=== PATIENT | male | born 1965 | race Caucasian/White ===

== ENCOUNTER 2018-01-11 01:04 | Inpatient (IN) | payer MEDICAID, OTHER ==
[~2018-01-11] VITALS: Ht 172.7 cm; Wt 96.6 kg
[2018-01-11] VITALS (7 sets, daily range): BP systolic 123–137; BP diastolic 67–74
--- NOTE | 2018-01-11 01:11 | NUR ---
PT AMBULATORY TO ER BED 11. BIBFAMILY FROM HOME C/O CP X 3 DAYS;BURNING PAIN 12/16. PT PLACED IN GOWN AND ON MOLDING SUPERVISOR. VSS/RESP EVEN UNLABORED/NAD NOTED/SKIN WARM AND DRY/AFEBRILE/DENIES N-V-D/AOX4. AWAITNG MD NGUYEN.
--- NOTE | 2018-01-11 01:25 | NUR ---
EMT AT BEDSIDE FOR EKG.
[2018-01-11] MEDS ORDERED: NITROGLYCERIN 0.4 MG/TAB BOTTLE ONE ×2 (01:30→12:33)
[2018-01-11] MEDS ORDERED: NITROGLYCERIN 0.4 MG/TAB BOTTLE SL ONE (01:30)
[2018-01-11 01:37] LABS: BASOPHILS % (AUTO) 0.4 % (0.0-2.0); HEMATOCRIT 42 % (39-51); HEMOGLOBIN 14.3 g/dL (13.5-17.5); LYMPHOCYTES # (AUTO) 1.6 /CMM (0.8-4.8); LYMPHOCYTES % (AUTO) 25.6 % (20.0-44.0); MEAN CORPUSCULAR HEMOGLOBIN 31 PG (26.0-33.0); MEAN CORPUSCULAR HGB CONC 34 g/dl (31.0-36.0); MEAN CORPUSCULAR VOLUME 90 fL (80-96); MONOCYTES # (AUTO) 0.8 /CMM (0.1-1.30); MONOCYTES % (AUTO) 13.1 % (2.0-12.0); NEUTROPHILS # (AUTO) 3.9 /CMM (1.8-8.9); NEUTROPHILS % (AUTO) 60.9 % (43.0-81.0); PLATELET COUNT (AUTO) 232 /CMM (150-450); RDW COEFFICIENT OF VARIATION 12.7 (11.5-15.0); RED BLOOD CELL COUNT(AUTO) 4.66 MIL/uL (4.5-6.0); WHITE BLOOD COUNT (AUTO) 6.4 K/uL (4.3-11.0)
--- NOTE | 2018-01-11 01:37 | NUR ---
LAB AT THE BEDSIDE FOR DRAW.
--- NOTE | 2018-01-11 01:41 | NUR ---
PT STATES HE IS CP FREE AFTER NITRO SL X 1.
--- NOTE | 2018-01-11 01:44 | NUR ---
XRAY AT BEDSIDE.
[2018-01-11 01:48] LABS: CALCIUM, SERUM 8.8 mg/dL (8.5-10.1); CARBON DIOXIDE 28 mmol/L (21-32); CHLORIDE 101 mmol/L (98-107); CREATININE 1.5 mg/dL (0.6-1.3); GLUCOSE 230 mg/dL (74-106); POTASSIUM 4.4 mmol/L (3.5-5.1); SODIUM SERUM 140 mmol/L (136-145); UREA NITROGEN, BLOOD 17 mg/dL (7-18)
[2018-01-11 01:56] LABS: TROPONIN I < 0.017 ng/mL (0.00-0.056)
[2018-01-11 02:01] LABS: B-TYPE NATRIURETIC PEPTIDE 18 PG/ML (0-125)
--- NOTE | 2018-01-11 02:01 | NUR ---
Note brett in ED - 01/11/18 at 0239 by MELISSA 20G IV TO L AC X 1 ATTEMPT USING ASEPTIC TECH. IV FLUSHES EASILY WITH NS, NO S/S INFILTRATION NOTED AT THIS TIME.
--- NOTE | 2018-01-11 02:01 | NUR ---
20G IV TO R HAND X 1 ATTEMPT USING ASEPTIC TECH. IV FLUSHES EASILY WITH NS, NO S/S INFILTRATION NOTED AT THIS TIME.
--- NOTE | 2018-01-11 02:34 | NUR ---
[facility] CONTACTED FOR MADELAINE MELENDEZ.
[2018-01-11] MEDS ORDERED: LISI2.5T2 PO (02:36)
[2018-01-11] MEDS ORDERED: METO25TA20 GT (02:36)
[2018-01-11] MEDS ORDERED: INSU100V7 SQ (02:36)
[2018-01-11] MEDS ORDERED: CLOP75TA15 PO (02:36)
[2018-01-11] MEDS ORDERED: INSU100I4 SQ (02:36)
[2018-01-11] MEDS ORDERED: ASPI-605 PO (02:36)
--- NOTE | 2018-01-11 02:45 | NUR ---
REPORT GIVEN TO WILLIE CARDOZO FOR MARGARITO.
--- NOTE | 2018-01-11 03:17 | NUR ---
PT TRANSPORTED TO TELE 111.1 VIA STRETCHER ON MACHINE STUFFER AUTOMATIC WITH RN PER ACLS PROTOCOL. VSS.
--- NOTE | 2018-01-11 03:33 | NUR ---
EXPERIMENTAL PSYCHOLOGIST NOTES RECEIVED PT FROM ER NURSE DWIGHT. PT ON ROOM AIR, SATURATING WELL, NO RESPIRATORY DISTRESS NOTED. VITAL SIGNS STABLE. ON TELE MONITOR SR 78. SKIN ASSESSMENT DONE. AWAITING ADMITTING ORDERS. WILL CONTINUE TO MONITOR PT CLOSELY.
--- NOTE | 2018-01-11 04:19 | NUR ---
NEWSPAPER VENDOR NOTES STILL AWAITING ADMITTING ORDERS.
[2018-01-11] MEDS ORDERED: MAGNESIUM HYDROXIDE 30 ML UDC PO PRN (05:00)
[2018-01-11] MEDS ORDERED: METOPROLOL TARTRATE 25 MG TABLET PO SCH (05:00)
[2018-01-11] MEDS ORDERED: ONDANSETRON HCL/PF 4 MG/2 ML VIAL IVP PRN (05:00)
[2018-01-11] MEDS ORDERED: HYDROCODONE/APAP 5/325MG 1 EACH TABLET PO PRN (05:00)
[2018-01-11] MEDS ORDERED: ZOLPIDEM TARTRATE 5 MG TABLET PO PRN (05:00)
[2018-01-11] MEDS ORDERED: DEXTROSE 50%-WATER 50 ML DISP.SYRIN IV PRN ×2 (05:00→18:30)
[2018-01-11] MEDS ORDERED: MORPHINE SULFATE INJ 2 MG/ML DISP.SYRIN IV PRN (05:00)
[2018-01-11] MEDS ORDERED: ACETAMINOPHEN 325 MG TABLET PO PRN (05:00)
[2018-01-11] MEDS ORDERED: NITROGLYCERIN 0.4 MG/TAB BOTTLE SL PRN (05:00)
[2018-01-11] MEDS: IV NS 0.9% 1,000 ML IV PRN (05:06)
--- NOTE | 2018-01-11 07:14 | NUR ---
BAKESHOP CLEANER NOTES NO ACUTE CHANGES NOTED DURING THE SHIFT. PROVIDED COMFORT AND SAFETY. BED ALARM ON. HEAD OF BED ELEVATED. SIDE RAILS UP. CALL LIGHT WITHIN REACH. ENDORSED TO THE AM NURSE FOR CONTINUITY FOR CARE.
[2018-01-11] MEDS: BLOOD SUGAR DIAGNOSTIC 1 EACH STRIP IN SCH ×3 (07:49→17:31)
[2018-01-11] MEDS: INSULIN REGULAR, HUMAN 100 UNIT/ML 3 ML VIAL SQ PRN ×3 (07:52→18:26)
[2018-01-11 07:53] LABS: BASOPHILS % (AUTO) 0.3 % (0.0-2.0); EOSINOPHILS % (AUTO) 0.7 % (0.0-6.0); HEMATOCRIT 39 % (39-51); HEMOGLOBIN 13.6 g/dL (13.5-17.5); LYMPHOCYTES # (AUTO) 1.6 /CMM (0.8-4.8); MEAN CORPUSCULAR HEMOGLOBIN 31 PG (26.0-33.0); MEAN CORPUSCULAR HGB CONC 35 g/dl (31.0-36.0); MEAN CORPUSCULAR VOLUME 89 fL (80-96); MONOCYTES # (AUTO) 0.8 /CMM (0.1-1.30); MONOCYTES % (AUTO) 12.4 % (2.0-12.0); NEUTROPHILS # (AUTO) 4.1 /CMM (1.8-8.9); NEUTROPHILS % (AUTO) 62.6 % (43.0-81.0); PLATELET COUNT (AUTO) 217 /CMM (150-450); RDW COEFFICIENT OF VARIATION 12.9 (11.5-15.0); RED BLOOD CELL COUNT(AUTO) 4.39 MIL/uL (4.5-6.0); WHITE BLOOD COUNT (AUTO) 6.6 K/uL (4.3-11.0)
[2018-01-11 08:08] LABS: CALCIUM, SERUM 8.6 mg/dL (8.5-10.1); CREATININE 1.1 mg/dL (0.6-1.3); MAGNESIUM 1.7 mg/dL (1.8-2.4); PHOSPHORUS 3.2 mg/dL (2.5-4.9); POTASSIUM 4.3 mmol/L (3.5-5.1)
[2018-01-11] MEDS ORDERED: ASPIRIN 81 MG TAB.CHEW PO SCH (09:00)
[2018-01-11] MEDS: ASPIRIN EC 81 MG TABLET.DR PO SCH (09:20)
[2018-01-11] MEDS: CLOPIDOGREL BISULFATE 75 MG TABLET PO SCH (09:20)
[2018-01-11] MEDS: ATORVASTATIN 40 MG TABLET PO SCH (09:50)
[2018-01-11] MEDS: Magnesium 1GM/D5W 100ML PREMIX 100 ML IV SCH ×2 (09:50→11:11)
[2018-01-11 10:17] LABS: THYROID STIMULATING HORMONE 1.882 uIU/mL (0.358-3.74)
[2018-01-11] MEDS: METOPROLOL TARTRATE 25 MG TABLET PO SCH ×2 (11:48→17:31)
[2018-01-11] MEDS ORDERED: IOHEXOL-350 100 ML VIAL IV ONE (12:21)
[2018-01-11] MEDS ORDERED: CT SWABBABLE VALVE TRANS SET 1 EA INFUS.SET MC ONE (12:21)
[2018-01-11] MEDS ORDERED: IV NS 0.9% 250 ML IV ONE (12:21)
[2018-01-11] MEDS ORDERED: METOPROLOL TARTRATE INJ 5 MG/5 ML AMPUL ONE (12:32)
[2018-01-11] MEDS ORDERED: INSULIN REGULAR, HUMAN 100 UNIT/ML 10 ML VIAL SQ SCH (18:00)
[2018-01-11] MEDS: BLOOD SUGAR DIAGNOSTIC 1 EACH STRIP VI SCH ×2 (18:27→21:23)
[2018-01-11] MEDS ORDERED: *INSULIN REGULAR(HUMULIN R)HUM 100 UNIT/ML VIAL SQ PRN (18:30)
--- NOTE | 2018-01-11 18:30 | NUR ---
NO C/O CHEST PAIN THROUGHOUT SHIFT. BLOOD SUGARS MONITORED, SPOKE WITH DR HOYOS RE - SLIDING SCALE ORDER AND STATED TO MAKE IT TO MODERATE SCALE. PT EATS WELL, VOIDS WELL AND AMBULATES STEADILY. FAMILY AT BEDSIDE. BED LOW AND LOCKED. CALL LIGHT WITHN REACHED. WILL CONT TO MONITOR.
[2018-01-12] VITALS: BP 109/56
[2018-01-12] MEDS: IV NS 0.9% 1,000 ML IV PRN (00:52)
[2018-01-12 04:00] VITALS: BP 149/65
[2018-01-12] MEDS: METOPROLOL TARTRATE 25 MG TABLET PO SCH ×3 (05:20→12:30)
[2018-01-12] MEDS: BLOOD SUGAR DIAGNOSTIC 1 EACH STRIP VI SCH ×2 (07:39→12:30)
[2018-01-12 07:56] LABS: BASOPHILS % (AUTO) 0.2 % (0.0-2.0); EOSINOPHILS % (AUTO) 1.1 % (0.0-6.0); HEMATOCRIT 41 % (39-51); HEMOGLOBIN 13.9 g/dL (13.5-17.5); LYMPHOCYTES # (AUTO) 1.4 /CMM (0.8-4.8); LYMPHOCYTES % (AUTO) 23.2 % (20.0-44.0); MEAN CORPUSCULAR HEMOGLOBIN 31 PG (26.0-33.0); MEAN CORPUSCULAR HGB CONC 34 g/dl (31.0-36.0); MEAN CORPUSCULAR VOLUME 90 fL (80-96); MONOCYTES # (AUTO) 0.6 /CMM (0.1-1.30); MONOCYTES % (AUTO) 10.5 % (2.0-12.0); PLATELET COUNT (AUTO) 202 /CMM (150-450); RDW COEFFICIENT OF VARIATION 12.4 (11.5-15.0); RED BLOOD CELL COUNT(AUTO) 4.49 MIL/uL (4.5-6.0); WHITE BLOOD COUNT (AUTO) 6.1 K/uL (4.3-11.0)
[2018-01-12] MEDS: INSULIN REGULAR, HUMAN 100 UNIT/ML 3 ML VIAL SQ PRN ×2 (07:59→12:29)
[2018-01-12 08:00] VITALS: BP 127/70
[2018-01-12 08:15] LABS: ALANINE AMINOTRANSFERASE 36 U/L (12-78); ALBUMIN 3.5 g/dL (3.4-5.0); ALKALINE PHOSPHATASE 64 U/L (46-116); ASPARTATE AMINOTRANSFERASE 17 U/L (15-37); BILIRUBIN,TOTAL 0.6 mg/dL (0.2-1.0); CALCIUM, SERUM 8.2 mg/dL (8.5-10.1); CARBON DIOXIDE 28 mmol/L (21-32); CHLORIDE 103 mmol/L (98-107); GLUCOSE 190 mg/dL (74-106); PHOSPHORUS 2.9 mg/dL (2.5-4.9); POTASSIUM 4.5 mmol/L (3.5-5.1); SODIUM SERUM 139 mmol/L (136-145); TOTAL PROTEIN, SERUM 6.7 g/dL (6.4-8.2); UREA NITROGEN, BLOOD 13 mg/dL (7-18)
[2018-01-12 08:16] LABS: TROPONIN I < 0.017 ng/mL (0.00-0.056)
[2018-01-12] MEDS: ATORVASTATIN 40 MG TABLET PO SCH (09:15)
[2018-01-12] MEDS: CLOPIDOGREL BISULFATE 75 MG TABLET PO SCH (09:15)
[2018-01-12] MEDS: ASPIRIN EC 81 MG TABLET.DR PO SCH (09:15)
[2018-01-12] MEDS ORDERED: METO25TA20 PO (11:56)
[2018-01-12 12:00] VITALS: BP 123/77
[2018-01-12 12:30] VITALS: BP 123/77
--- NOTE | 2018-01-12 13:34 | NUR ---
DISCHARGE INSTRUCTIONS GIVEN REGARDING MEDICATIONS, ACTIVITIES, DIET AND FOLLOW UP APPOINTMENTS. HL REMOVED. PT HAS NO C/O CHEST PAIN. PT EATING WELL. VOIDING WELL. VITAL SIGNS MONITORED AND STABLE. CAME TO TOW MOTOR MECHANIC PT. ENCOURAGED FOR QUESTIONS REGARDING DISCHARGE INSTRUCTIONS, NONE RAISED.
== END 2018-01-12 13:45 | disposition home or self-care (01) | DRG 243 ==
LOC: ER 01:06 → TELE1 02:47
PROVIDERS: ADMIT Nurse Practitioner Acute Care; ATTEND Family Medicine
DX: K21.9 Gastro-esophageal reflux disease without esophagitis (principal); N17.0 Acute kidney failure with tubular necrosis; I25.10 Atherosclerotic heart disease of native coronary artery without angina pectoris; E11.9 Type 2 diabetes mellitus without complications; E83.42 Hypomagnesemia; I10 Essential (primary) hypertension; Z79.82 Long term (current) use of aspirin; Z79.899 Other long term (current) drug therapy; Z79.4 Long term (current) use of insulin; Z95.5 Presence of coronary angioplasty implant and graft; Z83.3 Family history of diabetes mellitus; E66.9 Obesity, unspecified; Z68.32 Body mass index [BMI] 32.0-32.9, adult
CPT/HCPCS: 36415; 71045-TC; 75574; 80048-TC; 80053-TC; 80061-TC; 82962-TC; 83735-TC; 83880; 84100-TC; 84439-TC; 84443-TC; 84484-TC; 85025-TC; 85730-TC; 87081-TC; 93307-TC; A4606; J1815; J3475; J3490; J7030; J7050; Q9967; Z7610

== ENCOUNTER 2018-09-21 23:14 | Inpatient (IN) | payer BC ==
[~2018-09-21] VITALS: Ht 167.6 cm; Wt 97.1 kg
[~2018-09-21 23:14] MED LIST: ASPI-605 PO; CLOP75TA15 PO; INSU100I4 SQ; INSU100V7 SQ; LISI2.5T2 PO; METO25TA20 PO
--- NOTE | 2018-09-21 23:16 | NUR ---
PT BIBSELF COMPLAINING 5/10 CHEST PAIN RADIATING TO HEAD. PT STATES "CHEST PAIN STARTED 9PM YESTERDAY AND HAS NOT GONE AWAY." PT AXO4. RESPIRATIONS EVEN AND UNLABORED. PT PUT ON THE TRUCK DRIVER TEAMSTER AND PULSE OX. PENDING EVAL FROM ER .
--- NOTE | 2018-09-21 23:17 | NUR ---
EKG AT BEDSIDE.
--- NOTE | 2018-09-21 23:25 | NUR ---
MOMO ESPINOZA AT BEDSIDE.
[2018-09-21] MEDS ORDERED: IV NS 0.9% 1,000 ML BAG IV ONE (23:30)
[2018-09-21 23:40] LABS: BASOPHILS % (AUTO) 0.7 % (0.0-2.0); EOSINOPHILS % (AUTO) 1.4 % (0.0-6.0); HEMATOCRIT 43 % (39-51); HEMOGLOBIN 15.3 g/dL (13.5-17.5); LYMPHOCYTES # (AUTO) 1.9 /CMM (0.8-4.8); LYMPHOCYTES % (AUTO) 25.3 % (20.0-44.0); MEAN CORPUSCULAR HGB CONC 35 g/dl (31.0-36.0); MEAN CORPUSCULAR VOLUME 88 fL (80-96); MONOCYTES # (AUTO) 0.8 /CMM (0.1-1.30); MONOCYTES % (AUTO) 11.3 % (2.0-12.0); NEUTROPHILS # (AUTO) 4.5 /CMM (1.8-8.9); NEUTROPHILS % (AUTO) 61.3 % (43.0-81.0); PLATELET COUNT (AUTO) 237 /CMM (150-450); RED BLOOD CELL COUNT(AUTO) 4.89 MIL/uL (4.5-6.0); WHITE BLOOD COUNT (AUTO) 7.4 K/uL (4.3-11.0)
[2018-09-21] MEDS ORDERED: ATORVASTATIN 40 MG TABLET ONE (23:40)
[2018-09-21] MEDS ORDERED: ASPIRIN 81 MG TAB.CHEW ONE (23:40)
[2018-09-21] MEDS: ATORVASTATIN 40 MG TABLET PO SCH (23:44)
[2018-09-21 23:47] LABS: CALCIUM, SERUM 8.6 mg/dL (8.5-10.1); CARBON DIOXIDE 29 mmol/L (21-32); CHLORIDE 103 mmol/L (98-107); CREATININE 1.3 mg/dL (0.6-1.3); GLUCOSE 169 mg/dL (74-106); SODIUM SERUM 140 mmol/L (136-145); UREA NITROGEN, BLOOD 23 mg/dL (7-18)
[2018-09-22] MEDS ORDERED: ASPIRIN 81 MG TAB.CHEW PO ONE
[2018-09-22 00:01] LABS: ALANINE AMINOTRANSFERASE 37 U/L (12-78); ALBUMIN 3.8 g/dL (3.4-5.0); ALKALINE PHOSPHATASE 77 U/L (46-116); ASPARTATE AMINOTRANSFERASE 17 U/L (15-37); B-TYPE NATRIURETIC PEPTIDE 7 PG/ML (0-125); BILIRUBIN,DIRECT 0.1 mg/dL (0.0-0.2); BILIRUBIN,TOTAL 0.4 mg/dL (0.2-1.0); TOTAL PROTEIN, SERUM 7.2 g/dL (6.4-8.2)
[2018-09-22 00:18] LABS: CHOLESTEROL 301 mg/dL (<200); HDL CHOLESTEROL 51 mg/dL (40-60); LDL 201 mg/dL (0-99); TRIGLYCERIDES 359 mg/dL (30-150)
--- NOTE | 2018-09-22 00:28 | NUR ---
CALLED [facility] MICROBIOLOGY COORDINATOR SCULLION CHIEF.
--- NOTE | 2018-09-22 00:52 | NUR ---
PT RESTING IN BED, NAD NOTED. WILL CONTINUE TO MONITOR.
--- NOTE | 2018-09-22 01:32 | NUR ---
INSURANCE AUTH REC'D, PT CAN STAY.
--- NOTE | 2018-09-22 01:58 | NUR ---
PT RESTING IN BED, NAD NOTED. WILL CONTINUE TO MONITOR.
--- NOTE | 2018-09-22 02:19 | NUR ---
REPORT GIVEN TO MALLORY TAPIA FOR MARGARITO.
[2018-09-22 02:25] VITALS: BP 132/76
[2018-09-22 02:30] VITALS: BP 132/76
--- NOTE | 2018-09-22 02:30 | NUR ---
FUNDING SPECIALIST NOTES, RECEIVED 53 YEAR OLD MALE FROM ER DEPARTMENT VIA STRETCHER IN COMPANY OF 2 RNS IN STABLE CONDITION, NO SOB/ACUTE DISTRESS NOTED AT THIS TIME, UNDER MEDICAL SERVICES OF DAVID MELENDEZ NP, ADMITTING DX OF CHEST PAIN, PATIENT A/O X4, ABLE TO VERBALIZED NEEDS AND CONCERNS, C/O CHEST PAIN 12/16, WILL F/U WITH [facility] FOR ORDERS, IV ACCESS IN RIGHT AC 20G, PATENT AND INTACT, AFEBRILE, UPON SKIN ASSESSMENT SKIN NOTED INTACT, AMBULATORY, ATTACH TO TELE MONITOR AND SR NOTED WITH HR 70S, CALL LIGHT W/I REACH, BED LOCKED AND IN LOW POSITION, ORIENTED TO ROOM AND CALL LIGHT USE, WILL CONTINUE TO MONITOR CLOSELY. VS 132/76, 72, 98.1, 96%, 12/16, 18.
[2018-09-22] MEDS: MORPHINE SULFATE INJ 2 MG/ML DISP.SYRIN IV PRN ×2 (02:59→14:14)
[2018-09-22] MEDS ORDERED: NITROGLYCERIN 0.4 MG/TAB BOTTLE SL PRN (03:00)
[2018-09-22] MEDS ORDERED: HYDROCODONE/APAP 5/325MG 1 EACH TABLET PO PRN (03:00)
[2018-09-22] MEDS ORDERED: DEXTROSE 50%-WATER 50 ML DISP.SYRIN IV PRN (03:00)
[2018-09-22] MEDS ORDERED: ACETAMINOPHEN 325 MG TABLET PO PRN (03:00)
[2018-09-22] MEDS ORDERED: ZOLPIDEM TARTRATE 5 MG TABLET PO PRN (03:00)
[2018-09-22] MEDS ORDERED: ATORVASTATIN 40 MG TABLET PO SCH (03:00)
[2018-09-22] MEDS ORDERED: MAGNESIUM HYDROXIDE 30 ML UDC PO PRN (03:00)
[2018-09-22] MEDS ORDERED: ONDANSETRON HCL/PF 4 MG/2 ML VIAL IVP PRN (03:00)
[2018-09-22 04:00] VITALS: BP 157/84
--- NOTE | 2018-09-22 06:56 | NUR ---
WOOD PATTERNMAKER NOTES, PATIENT SLEEPING AT THIS TIME, BREATHING EVEN AND UNLABORED NO SOB/ACUTE DISTRESS NOTED AT THIS TIME, NO FACIAL GRIMACING NOTED, NO S/S OF PAIN OR DISCOMFORT NOTED, , IV ACCESS IN RIGHT AC 20G, PATENT AND INTACT, ON TELE MONITOR AND SR NOTED WITH HR 70S, CALL LIGHT W/I REACH, BED LOCKED AND IN LOW POSITION, NO SIGNIFICANT CHANGE IN CONDITION DURING THE REST OF THE SHIFT, WILL ENDORSE CONTINUITY OF CARE TO ONCOMING NURSE.
[2018-09-22 06:57] LABS: BASOPHILS % (AUTO) 0.6 % (0.0-2.0); EOSINOPHILS % (AUTO) 2.1 % (0.0-6.0); HEMATOCRIT 40 % (39-51); LYMPHOCYTES # (AUTO) 1.7 /CMM (0.8-4.8); LYMPHOCYTES % (AUTO) 29.5 % (20.0-44.0); MEAN CORPUSCULAR HGB CONC 35 g/dl (31.0-36.0); MEAN CORPUSCULAR VOLUME 88 fL (80-96); MONOCYTES # (AUTO) 0.7 /CMM (0.1-1.30); MONOCYTES % (AUTO) 11.2 % (2.0-12.0); NEUTROPHILS # (AUTO) 3.3 /CMM (1.8-8.9); NEUTROPHILS % (AUTO) 56.6 % (43.0-81.0); PLATELET COUNT (AUTO) 197 /CMM (150-450); RED BLOOD CELL COUNT(AUTO) 4.57 MIL/uL (4.5-6.0); WHITE BLOOD COUNT (AUTO) 5.9 K/uL (4.3-11.0)
[2018-09-22 07:04] LABS: CALCIUM, SERUM 8.3 mg/dL (8.5-10.1); MAGNESIUM 1.9 mg/dL (1.8-2.4); PHOSPHORUS 3.5 mg/dL (2.5-4.9); POTASSIUM 3.9 mmol/L (3.5-5.1)
[2018-09-22 08:00] VITALS: BP 132/74
--- NOTE | 2018-09-22 08:00 | NUR ---
THERAPEUTIC RECREATION ASSISTANT NOTES, PATIENT SLEEPING AT THIS TIME, BREATHING EVEN AND UNLABORED NO SOB/ACUTE DISTRESS NOTED AT THIS TIME, , NO S/S OF PAIN OR DISCOMFORT NOTED, , IV ACCESS IN RIGHT AC 20G, PATENT AND INTACT, ON TELE MONITOR AND SR NOTED WITH HR 69, CALL LIGHT W/I REACH, BED LOCKED AND IN LOW POSITION, , 2DECHO DONE ORDERED NO SOB NOTED WILL MONITOR CLOSELY ,SEEN BY DR MA
[2018-09-22] MEDS: CLOPIDOGREL BISULFATE 75 MG TABLET PO SCH (08:33)
[2018-09-22] MEDS: LISINOPRIL (5MG) 5 MG TABLET PO SCH (08:34)
[2018-09-22] MEDS: ASPIRIN EC 81 MG TABLET.DR PO SCH (08:34)
[2018-09-22] MEDS: INSULIN REGULAR, HUMAN 100 UNIT/ML 3 ML VIAL SQ PRN ×4 (08:35→21:27)
[2018-09-22] MEDS: BLOOD SUGAR DIAGNOSTIC 1 EACH STRIP IN SCH ×4 (08:41→21:25)
[2018-09-22 08:47] VITALS: BP 132/74
[2018-09-22] MEDS ORDERED: METOPROLOL TARTRATE 25 MG TABLET PO ONE (09:00)
[2018-09-22] MEDS ORDERED: METOPROLOL TARTRATE 25 MG TABLET PO SCH (09:00)
--- NOTE | 2018-09-22 10:16 | NUR ---
MS RN NOTE SIGNED CONSENT FOR CT ANGIOGRAM
[2018-09-22] MEDS ORDERED: IOHEXOL-350 100 ML VIAL IV ONE (13:27)
[2018-09-22] MEDS ORDERED: IV NS 0.9% 250 ML IV ONE (13:28)
[2018-09-22] MEDS ORDERED: CT SWABBABLE VALVE TRANS SET 1 EA INFUS.SET MC ONE (13:28)
[2018-09-22] MEDS ORDERED: METOPROLOL TARTRATE INJ 5 MG/5 ML AMPUL ONE (13:28)
[2018-09-22] MEDS ORDERED: IV NS 0.9% 500 ML IV ONE ×2 (13:34→14:00)
[2018-09-22] MEDS ORDERED: NITROGLYCERIN 4.9 GM SPRAY SL ONE (14:00)
[2018-09-22] MEDS ORDERED: METOPROLOL TARTRATE INJ 5 MG/5 ML AMPUL IVP ONE (14:00)
--- NOTE | 2018-09-22 14:20 | NUR ---
ms rn note back from ct angio gram ,c\o chest pain 8\1o , morphine 2 mg ivp given as ordered, nitro glycerin sl was given prior to cone to unit by ct angio rn , will f\u
--- NOTE | 2018-09-22 14:37 | NUR ---
MS RN NOTE DR MILLER AT BEDSIDE NOTIFIED THAT PATIENT HAD CT ANGIOGRAM JUST NOW AND C\O CHEST PAIN MORPHINE 2 MF IVP GIVEN ORDERED ALSO AWARE THAT EARLIER 2D ECHO DONE, EF 65% TROPONIN 0.017 , STATED WILL MONITOR CLOSELY FOR CT ANGIOGRAM RESULT, NO NEW ORDER GIVEN AR THIS TIME ,
--- NOTE | 2018-09-22 15:13 | NUR ---
ms rn note ekg done as ordered, result given to dr sullivan , awaiting for troponin level ,chest pain is slightly subsided 6\10, will monitor
[2018-09-22 16:00] VITALS: BP 116/66
--- NOTE | 2018-09-22 16:48 | NUR ---
ms rn note dr christina notifyed of cta result no new order given at this time ok to stay patient over night
--- NOTE | 2018-09-22 18:15 | NUR ---
MS RN NOTE DR MA NOTIFIED ABOUT CTA RESULT ,NO NEW ORDER GIVEN AT THIS TIME WITH POSSIBLE TO D\C HOME TOMORROW
--- NOTE | 2018-09-22 18:53 | NUR ---
ms rn note resting comfortably , all needs attended ,not in discomfort at this time ,will cont to monitor closely
--- NOTE | 2018-09-22 19:10 | NUR ---
PACK OPERATOR NOTES, PATIENT IN BED AWAKE A/O X4 WATCHING TV AT THIS TIME, BREATHING EVEN AND UNLABORED NO SOB/ACUTE DISTRESS NOTED AT THIS TIME, NO S/S OF PAIN OR DISCOMFORT NOTED, DENIES PAIN OR DISCOMFORT AT THIS TIME, IV ACCESS IN RIGHT AC 20G, PATENT AND INTACT, CALL LIGHT W/I REACH, BED LOCKED AND IN LOW POSITION, WILL CONTINUE TO MONITOR PATIENT CLOSELY.
[2018-09-22] MEDS: ATORVASTATIN 40 MG TABLET PO SCH (22:00)
[2018-09-23 04:00] VITALS: BP 109/73
[2018-09-23 06:39] LABS: BASOPHILS % (AUTO) 0.2 % (0.0-2.0); EOSINOPHILS % (AUTO) 1.6 % (0.0-6.0); HEMATOCRIT 43 % (39-51); HEMOGLOBIN 15.2 g/dL (13.5-17.5); LYMPHOCYTES # (AUTO) 1.2 /CMM (0.8-4.8); MEAN CORPUSCULAR HGB CONC 35 g/dl (31.0-36.0); MEAN CORPUSCULAR VOLUME 88 fL (80-96); MONOCYTES # (AUTO) 0.7 /CMM (0.1-1.30); MONOCYTES % (AUTO) 10.8 % (2.0-12.0); NEUTROPHILS # (AUTO) 4.5 /CMM (1.8-8.9); NEUTROPHILS % (AUTO) 68.4 % (43.0-81.0); PLATELET COUNT (AUTO) 209 /CMM (150-450); RED BLOOD CELL COUNT(AUTO) 4.94 MIL/uL (4.5-6.0); WHITE BLOOD COUNT (AUTO) 6.6 K/uL (4.3-11.0)
--- NOTE | 2018-09-23 06:55 | NUR ---
BEHAVIOUR SUPPORT TEACHER NOTES, PATIENT IN BED AWAKE A/O X4 WATCHING TV AT THIS TIME, BREATHING EVEN AND UNLABORED NO SOB/ACUTE DISTRESS NOTED AT THIS TIME, NO S/S OF PAIN OR DISCOMFORT NOTED, DENIES CHEST PAIN OR DISCOMFORT AT THIS TIME, IV ACCESS IN RIGHT AC 20G, PATENT AND INTACT, CALL LIGHT W/I REACH, ALL NEEDS PROVIDED, NO CHANGE IN CONDITION THROUGHOUT THE NIGHT, BED LOCKED AND IN LOW POSITION, WILL ENDORSE CONTINUITY OF CARE TO ONCOMING NURSE.
[2018-09-23 07:06] LABS: CALCIUM, SERUM 8.7 mg/dL (8.5-10.1); CREATININE 0.9 mg/dL (0.6-1.3); MAGNESIUM 2.1 mg/dL (1.8-2.4); PHOSPHORUS 3.3 mg/dL (2.5-4.9); POTASSIUM 4.1 mmol/L (3.5-5.1)
[2018-09-23] MEDS ORDERED: PANTOPRAZOLE 40 MG TABLET.DR PO SCH (07:30)
[2018-09-23 08:00] VITALS: BP 121/68
[2018-09-23] MEDS ORDERED: METOPROLOL TARTRATE 25 MG TABLET PO SCH (09:00)
[2018-09-23] MEDS: BLOOD SUGAR DIAGNOSTIC 1 EACH STRIP IN SCH ×2 (09:00→12:26)
[2018-09-23 09:01] VITALS: BP 121/68
[2018-09-23] MEDS: CLOPIDOGREL BISULFATE 75 MG TABLET PO SCH (09:01)
[2018-09-23] MEDS: LISINOPRIL (5MG) 5 MG TABLET PO SCH (09:01)
[2018-09-23] MEDS: ASPIRIN EC 81 MG TABLET.DR PO SCH (09:01)
[2018-09-23] MEDS: INSULIN REGULAR, HUMAN 100 UNIT/ML 3 ML VIAL SQ PRN ×2 (09:09→12:31)
[2018-09-23] MEDS ORDERED: PANT40TA2 PO (13:10)
[2018-09-23] MEDS ORDERED: Nitroglycerin SL (13:10)
[2018-09-23] MEDS ORDERED: METO25TA20 PO (13:10)
[2018-09-23] MEDS ORDERED: ATOR40TA PO (13:10)
--- NOTE | 2018-09-23 14:00 | NUR ---
RN NOTE PT DISCHARGE HOME, IN STABLE CONDITION WITH KRISTEN, VIA OWN TRANSPORTATION, DISCHARGE INSTRUCTIONS PROVIDED TO PT, EXIT CARE, DONE, BELONGINGS LIST SIGNED AND BELONGINGS PROVIDED TO PT, PRESCRIPTION GIVEN TO PT. SKIN IS INTACT. COPIES LEFT IN CHART. Addendum: 09/23/18 at 2108 by CARLI GARCIA RN PT DISCHARGED HOME AT 1400, IV REMOVED, ID BAND REMOVED.
== END 2018-09-23 14:00 | disposition home or self-care (01) | DRG 243 ==
LOC: ER 23:16 → TELE1 09-22 02:03 → MEDSG1 09-22 09:00
PROVIDERS: ADMIT Student in an Organized Health Care Education/Training Program; ATTEND Student in an Organized Health Care Education/Training Program
DX: K21.9 Gastro-esophageal reflux disease without esophagitis (principal); E66.01 Morbid (severe) obesity due to excess calories; E83.51 Hypocalcemia; E11.9 Type 2 diabetes mellitus without complications; E78.5 Hyperlipidemia, unspecified; I25.10 Atherosclerotic heart disease of native coronary artery without angina pectoris; I25.2 Old myocardial infarction; Z95.5 Presence of coronary angioplasty implant and graft; R79.89 Other specified abnormal findings of blood chemistry; I10 Essential (primary) hypertension; Z68.34 Body mass index [BMI] 34.0-34.9, adult; E78.1 Pure hyperglyceridemia
CPT/HCPCS: 36415; 71045-TC; 75574; 80048-TC; 80061-TC; 80076-TC; 82962-TC; 83735-TC; 83880; 84100-TC; 84484-TC; 85025-TC; 85730-TC; 87081-TC; 93307-TC; G0378; J1815; J2270; J2405; J3490; J7030; J7040; J7050; Q9967

== ENCOUNTER 2021-02-19 20:42 | Emergency (ER) | payer BC ==
[~2021-02-19] VITALS: Ht 172.7 cm; Wt 90.7 kg
[~2021-02-19 20:42] MED LIST changes: +ATOR40TA PO; -CLOP75TA15 PO; +Nitroglycerin SL; +PANT40TA2 PO
--- NOTE | 2021-02-19 20:55 | NUR ---
BIBS FOR C/O POSTERIOR HEADACHE AND OCCASIONAL DIZZINESS X 4-5 DAYS. HX OF CVA W/ R SIDED WEAKNESS. -N/V. PT ALERT AND ORIENTED X3. AMBULATORY WITH NON LABORED BREATHING.
[2021-02-19] MEDS ORDERED: ACETAMINOPHEN ES 500 MG TABLET ONE (21:22)
--- NOTE | 2021-02-19 21:27 | NUR ---
BLOOD TAKEN AND SENT TO LAB.
[2021-02-19] MEDS ORDERED: ACETAMINOPHEN 325 MG TABLET PO ONE (21:30)
[2021-02-19 21:47] LABS: BASOPHILS % (AUTO) 0.5 % (0.0-2.0); EOSINOPHILS % (AUTO) 1.4 % (0.0-6.0); HEMATOCRIT 37 % (39-51); HEMOGLOBIN 13.3 g/dL (13.5-17.5); LYMPHOCYTES # (AUTO) 1.5 K/uL (0.8-4.8); LYMPHOCYTES % (AUTO) 27.9 % (20.0-44.0); MEAN CORPUSCULAR HGB CONC 36 g/dl (31.0-36.0); MEAN CORPUSCULAR VOLUME 88 fL (80-96); MONOCYTES # (AUTO) 0.6 K/uL (0.1-1.30); MONOCYTES % (AUTO) 10.3 % (2.0-12.0); NEUTROPHILS # (AUTO) 3.2 K/uL (1.8-8.9); NEUTROPHILS % (AUTO) 59.9 % (43.0-81.0); PLATELET COUNT (AUTO) 202 K/uL (150-450); RED BLOOD CELL COUNT(AUTO) 4.27 MIL/uL (4.5-6.0); WHITE BLOOD COUNT (AUTO) 5.4 K/uL (4.3-11.0)
--- NOTE | 2021-02-19 21:47 | NUR ---
PT GOING TO CT.
[2021-02-19 22:02] LABS: CALCIUM, SERUM 8.6 mg/dL (8.5-10.1); CREATININE 0.9 mg/dL (0.6-1.3); POTASSIUM 4.1 mmol/L (3.5-5.1)
[2021-02-19 23:13] VITALS: BP 140/80
--- NOTE | 2021-02-19 23:13 | NUR ---
Patient discharged to home in stable condition. Written and verbal after care instructions given. Patient verbalizes understanding of instruction.
== END 2021-02-19 23:14 | disposition home or self-care (01) ==
LOC: ER 20:45
DX: R51.9 Headache, unspecified (principal); Z86.73 Personal history of transient ischemic attack (TIA), and cerebral infarction without residual deficits; E10.9 Type 1 diabetes mellitus without complications; E78.5 Hyperlipidemia, unspecified; I25.2 Old myocardial infarction; Z98.890 Other specified postprocedural states; Z79.899 Other long term (current) drug therapy; Z79.82 Long term (current) use of aspirin
CPT/HCPCS: 36415; 70450-TC; 80048-TC; 84484-TC; 85025-TC; 85730-TC

== ENCOUNTER 2025-01-27 22:00 | Emergency (ER) | payer BC ==
[~2025-01-27] VITALS: Ht 165.1 cm; Wt 95.3 kg
[2025-01-27] MEDS ORDERED: ONDANSETRON HCL/PF 4 MG/2 ML VIAL ONE (22:49)
[2025-01-27] MEDS: ONDANSETRON HCL/PF 4 MG/2 ML VIAL IV ONE (22:50)
[2025-01-27] MEDS ORDERED: MECLIZINE HCL 25 MG TABLET ONE (22:50)
[2025-01-27] MEDS: MECLIZINE HCL 25 MG TABLET PO ONE (22:50)
[2025-01-27 22:53] LABS: PLATELET COUNT (AUTO) 217 K/uL (150-450); RED BLOOD CELL COUNT(AUTO) 4.48 MIL/uL (4.5-6.0); RED CELL DISTRIBUTION WIDTH 13.5 % (11.5-15.0); WHITE BLOOD COUNT (AUTO) 5.6 K/uL (4.3-11.0)
[2025-01-27 23:04] LABS: CALCIUM, SERUM 8.5 mg/dL (8.5-10.1); CREATININE 1.1 mg/dL (0.6-1.3); SODIUM SERUM 140 mmol/L (136-145); UREA NITROGEN, BLOOD 21 mg/dL (7-18)
[2025-01-27 23:06] LABS: ASPARTATE AMINOTRANSFERASE 15 U/L (15-37); INR 0.98 (0.91-1.10); TOTAL PROTEIN, SERUM 6.6 g/dL (6.4-8.2)
[2025-01-27] MEDS ORDERED: ONDA4TAB5 PO (23:48)
[2025-01-27 23:56] VITALS: BP 137/78; TEMP 97.9; O2SAT 94
== END 2025-01-27 23:56 | disposition home or self-care (01) ==
LOC: ER 22:12
DX: I10 Essential (primary) hypertension (principal); R42 Dizziness and giddiness; E11.9 Type 2 diabetes mellitus without complications; I25.2 Old myocardial infarction; Z79.82 Long term (current) use of aspirin; Z79.899 Other long term (current) drug therapy; Z86.73 Personal history of transient ischemic attack (TIA), and cerebral infarction without residual deficits; Z86.2 Personal history of diseases of the blood and blood-forming organs and certain disorders involving the immune mechanism
CPT/HCPCS: 99285; 96374; 70450; 71045; 93005; 85025; 80048; 80076; 36415; 84484; 85730; J8597; J2405